=== PATIENT | female | born 1940 | race African-American/Black ===

== ENCOUNTER → 2016-09-28 | Day surgery (SDC) | payer MEDICARE, OTHER ==
[~2016-09-28] MED LIST: HCTZ PO; PROTONIX PO; VERAPAMIL ER240 M1; WELCHOL625 MG PO; ZYRTEC10 M1 PO
--- NOTE | ~2016-09-28 | OR ---
Unit #: [id number] #: [id number] Patient: TRACI PACE [id number] [address] [place], [place] [address] [id number] MR#: [id number] NAME: TRACI PACE ROOM: Date of Procedure: 09/28/2016 Admission Date: 09/28/2016 Surgeon: Jhonathan Munoz M.D. : 1940 Attending Physician: Johnathan Munoz M.D. Primary Care Physician: Lena Amato M.D. OPERATIVE REPORT PREOPERATIVE DIAGNOSIS Colorectal cancer screening in an average-risk patient. PROCEDURE PERFORMED Colonoscopy up to cecum and terminal ileum with excellent preparation and good visualization. POSTOPERATIVE DIAGNOSES Mild sigmoid diverticulosis, otherwise normal examination up to cecum and terminal ileum. The quality of the prep was good. No polyps were seen. RECOMMENDATIONS No further evaluation is indicated as the patient's age of 76. SEDATION USED MAC. DESCRIPTION OF PROCEDURE Following detailed explanation of potential risks and complications of a colonoscopy, namely perforation, bleeding, and complications related to sedation, the patient was brought to GI lab and laid in the left lateral decubitus position. A digital rectal examination was performed, which was normal. Lubricated tip of the Olympus video colonoscope was inserted through the anus and advanced under direct vision. The scope was advanced and passed up to sigmoid into descending colon. Scant small diverticula were noted in this area. The scope tip was then navigated all the way up to cecum with visualization of the ileocecal valve and the appendiceal orifice. Preparation was excellent with good visualization and photodocumentation was obtained. Last several inches of the terminal ileum also visualized after intubation of the ileocecal valve and appeared normal. Successive segments of the colonic mucosa were examined upon withdrawal and appeared unremarkable. There being no polyps, mass lesions, or AVMs. Other than the scant diverticula seen in the left side, no other abnormalities noted. The patient did not have any hemorrhoids at anal verge. The scope was then withdrawn. The patient returned to recovery area. She tolerated the procedure without any postprocedure complications. Dictated by... Johnathan Munoz M.D. Unit #: [id number] #: [id number] Patient: TRACI PACE AK/modandriy TD: 09/28/2016 17:46 JOB #: [id number] CC: Lena Amato M.D. OPERATIVE REPORT Page 1 of 1 X Johnathan Munoz MD PROCEDURE OPERATIVE NOTE
== END | disposition home or self-care (01) ==
LOC: COPS 11:42
DX: Z12.11 Encounter for screening for malignant neoplasm of colon (principal); K57.30 Diverticulosis of large intestine without perforation or abscess without bleeding; K21.9 Gastro-esophageal reflux disease without esophagitis; I10 Essential (primary) hypertension; Z79.899 Other long term (current) drug therapy; Z90.710 Acquired absence of both cervix and uterus; Z98.890 Other specified postprocedural states